=== PATIENT | male | born 1980 | race Caucasian/White ===

== ENCOUNTER 2017-12-19 01:17 | Emergency (ER) | payer BC, OTHER ==
[2017-12-19] MEDS ORDERED: Acetaminophen/HYDROcodone 325-5 MG Tab PO ONE (01:54)
[2017-12-19] MEDS ORDERED: Amoxicillin 500 MG Cap PO ONE (01:54)
--- NOTE | 2017-12-19 01:54 | EDM.PDOC ---
ED HPI GENERAL MEDICAL PROBLEM - General Chief Complaint: ENT Problem Stated Complaint: TOOTH PAIN Time Seen by Provider: 12/19/17 01:47 - History of Present Illness INITIAL COMMENTS - FREE TEXT/NARRATIVE: 37-year-old male presents emergency room with dental pain. His left lower wisdom tooth is acting up. This is been going on for last 3-4 days progressively getting worse he cannot sleep tonight. He does have a phone call into his dentist who will try and work him in as soon as possible. Patient denies any fevers chills no facial swelling. Patient has not had prior problems like this in the past. He's taken some [id number] Tylenol Motrin and tried rubbing a little whiskey over however has not drank any whiskey. Left Lower Tooth/Teeth Pain Score (Numeric/FACES): 9 - Related Data Allergies Allergy/AdvReac Type Severity Reaction Status Date / Time No Known Allergies Allergy Verified 12/19/17 01:23 Home Meds: Home Meds Acetaminophen [Tylenol Extra Strength] 1,000 mg PO ONCALL PRN 12/19/17 [History] Amoxicillin 500 mg PO Q8H #30 capsule 12/19/17 [Rx] Past Medical History - Past Health History Medical/Surgical History: Denies Medical/Surgical History Cardiovascular History: Reports: [place] Social & Family History - Tobacco Use Smoking Status *Q: Current Every Day Smoker Years of Tobacco use: 15 Packs/Tins Daily: 0.1 Used Tobacco, but Quit: Yes Month Tobacco Last Used: 07/2017 Tobacco Use Comment: pt quit smoking in July, Currently still chews - Alcohol Use Days Per Week of Alcohol Use: 0 - Recreational Drug Use Recreational Drug Use: No ED ROS ENT - Review of Systems Review Of Systems: See Below Constitutional: Reports: No Symptoms HEENT: Reports: Dental Pain. Denies: Ear Pain, Eye Pain, Rhinitis, Sinus Problem Respiratory: Reports: No Symptoms Cardiovascular: Reports: No Symptoms GI/Abdominal: Reports: No Symptoms ED EXAM, ENT - Physical Exam Exam: See Below Exam Limited By: No Limitations General Appearance: Alert, No Apparent Distress Ears: Normal External Exam, Normal Canal, Hearing Grossly Normal, Normal TMs Nose: Normal Inspection, Normal Mucousa Mouth/Throat: Normal Inspection, Normal Gums, Normal Lips, Normal Oropharynx, Other (This teeth do not look too bad however his left rear tooth has surrounding swelling behind it. No drainage noted the areas is exquisitely tender the rearmost molar is exquisitely tender) Neck: Normal Inspection, Supple, Non-Tender, Full Range of Motion. No: Lymphadenopathy (L), Lymphadenopathy (R) Respiratory/Chest: No Respiratory Distress, Lungs Clear, Normal Breath Sounds Cardiovascular: Regular Rate, Rhythm, No Edema, No Murmur Course - Vital Signs Last Recorded V/S: Last Vital Signs Temp 36.9 C 12/19/17 01:24 Pulse 80 12/19/17 01:24 Resp 18 12/19/17 01:24 BP 137/86 12/19/17 01:24 Pulse Ox 97 12/19/17 01:24 - Orders/Labs/Meds Meds: Medications Discontinued Medications Generic Name Dose Route Start Last Admin Trade Name Mathew PRN Reason Stop Dose Admin Hydrocodone Bitart/Acetaminophen 1 tab 12/19/17 01:54 12/19/17 02:02 [place] 325-5 Mg PO 12/19/17 01:55 1 tab ONETIME ONE Administration Amoxicillin 500 mg 12/19/17 01:54 12/19/17 02:02 Amoxil PO 12/19/17 01:55 500 mg ONETIME ONE Administration Departure - Departure Time of Disposition: 01:56 Disposition: Home, Self-Care 01 Clinical Impression: Pain due to dental caries - Discharge Information Prescriptions: Amoxicillin 500 mg PO Q8H #30 capsule Referrals: PCP,None [Primary Care Provider] - Forms: ED Department Discharge Additional Instructions: Return to emergency room with any questions problems worsening symptoms. Follow up with your dentist as soon as you can. He been started on 2 medications one is hydrocodone use this for more severe pain when ibuprofen is not working or for nighttime use. Take one or 2 every 6 hours as needed. Allow 12 hours after using this medication before driving or returning to work. The second medication is amoxicillin this is an antibiotic take 500 mg or one tablet every 8 hours for 10 days.
== END 2017-12-19 02:09 | disposition home or self-care (01) ==
LOC: JD.ED 01:17
DX: K02.9 Dental caries, unspecified (principal); F17.210 Nicotine dependence, cigarettes, uncomplicated
CPT/HCPCS: 99282; A9270

== ENCOUNTER 2018-05-07 12:35 | Emergency (ER) | payer BC ==
--- NOTE | 2018-05-07 13:40 | EDM.PDOC ---
<Julissa Banerjee - Last Filed: 05/07/18 13:49> ED HPI GENERAL MEDICAL PROBLEM - General Chief Complaint: Exposure to Heat or Cold Stated Complaint: SENT FROM [place] Time Seen by Provider: 05/07/18 13:40 - History of Present Illness INITIAL COMMENTS - FREE TEXT/NARRATIVE: Patient comes in today for complaint of myalgias, confusion, throat pain, and headache. 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 Yesterday morning the patient woke up in tears and doubled up due to abdominal cramping, patient also dry heaved several times and had a HARVEY. He left for work at 0530 and was brought home by his boss' at 1400. When patient's arrived at home at 1800 patient appeared confused and did not know where he was. Patient was also had chills, diaphoretic, weak, and complaining of a HARVEY. Patient's gave him coconut water, childress, and Tylenol. Tylenol did not help with his HARVEY. This morning patient complained of HARVEY, myalgias, and throat pain. Patient's also states the patient still does not seem to be acting like his normal self. Associated symptoms include reduced urine output. Patient denies nausea, vomiting, or abdominal pain. Onset Date: 05/05/18 Duration: Improving Quality: Reports: Other (cramping) Associated Symptoms: Reports: Confusion, Headaches, Nausea/Vomiting, Weakness. 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 Denies: Fever HEENT: Reports: Throat Pain Respiratory: Denies: Shortness of Breath Cardiovascular: Denies: Chest Pain, Edema GI/Abdominal: Reports: Decreased Appetite. Denies: Abdominal Pain, Diarrhea, Distension, Nausea, Vomiting : Denies: Dysuria, Frequency, Urgency, Urinary Retention Musculoskeletal: Reports: Muscle Pain Neurological: Reports: Confusion, Headache. Denies: Numbness, Tingling, Trouble Speaking, Change in Speech ED EXAM, GENERAL - Physical Exam Exam Limited By: No Limitations General Appearance: Alert, WD/WN, No Apparent Distress Eye Exam: Bilateral Eye: EOMI, PERRL Head: Atraumatic, Normocephalic Respiratory/Chest: No Respiratory Distress, Lungs Clear, Normal Breath Sounds Cardiovascular: Normal Peripheral Pulses, Regular Rate, Rhythm GI/Abdominal: Normal Bowel Sounds, Soft, Non-Tender, No Organomegaly, No Distention, No Abnormal Bruit, No Mass Neurological: Alert, Oriented, CN II-XII Intact, Normal Reflexes Skin Exam: Warm, Dry, Intact, Normal Color Course - Vital Signs Last Recorded V/S: Last Vital Signs Temp 36.6 C 05/07/18 16:01 Pulse 77 05/07/18 16:01 Resp 20 05/07/18 16:01 BP 95/65 05/07/18 16:01 Pulse Ox 100 05/07/18 16:01 - Orders/Labs/Meds Orders: Active Orders 24 hr Category Date Time Status Chest 1V Frontal [CR] Stat Exams 05/07/18 15:08 Taken URINALYSIS W/MICROSCOPIC [UA W/MICROSCOPIC] [URIN] Stat Lab 05/07/18 13:10 Ordered Labs: Laboratory Tests 05/07/18 05/07/18 05/07/18 Range/Units 13:10 13:10 13:10 WBC 13.32 H (4.23-9.07) K/mm3 RBC 4.51 L (4.63-6.08) M/mm3 Hgb 13.3 L (13.7-17.5) gm/L Hct 39.7 L (40.1-51.0) % MCV 88.0 (79.0-92.2) fl MCH 29.5 (25.7-32.2) pg MCHC 33.5 (32.2-35.5) g/dl RDW Std Deviation 41.9 (35.1-43.9) fL Plt Count 241 (163-337) K/mm3 MPV 10.8 (9.4-12.3) fl Neutrophils % (Manual) 73 H (40-60) % Band Neutrophils % 1 (0-10) % Lymphocytes % (Manual) 18 L (20-40) % Atypical Lymphs % 0 % Monocytes % (Manual) 6 (2-10) % Eosinophils % (Manual) 2 (0.8-7.0) % Basophils % (Manual) 0 L (0.2-1.2) Platelet Estimate Adequate Plt Morphology Comment Normal RBC Morph Comment Normal Sodium 139 (136-145) mEq/L Potassium 4.0 (3.5-5.1) mEq/L Chloride 104 (98-107) mEq/L Carbon Dioxide 28 (21-32) mEq/L Anion Gap 11.0 (5-15) BUN 9 (7-18) mg/dL Creatinine 1.0 (0.7-1.3) mg/dL Est Cr Clr Drug Dosing 99.75 mL/min Estimated GFR (MDRD) > 60 (>60) mL/min BUN/Creatinine Ratio 9.0 L (14-18) Glucose 96 (74-106) mg/dL Serum Osmolality 296 (280-300) mosm/kg Lactic Acid (0.4-2.0) mmol/L Calcium 8.6 (8.5-10.1) mg/dL Magnesium 2.2 (1.8-2.4) mg/dl Total Bilirubin 0.8 (0.2-1.0) mg/dL AST 42 H (15-37) U/L ALT 77 H (16-63) U/L Alkaline Phosphatase 58 (46-116) U/L Creatine Kinase 101 (39-308) U/L C-Reactive Protein (<1.0) mg/dL Total Protein 7.3 (6.4-8.2) g/dl Albumin 4.0 (3.4-5.0) g/dl Globulin 3.3 gm/dL Albumin/Globulin Ratio 1.2 (1-2) Urine Color Light yellow (Yellow) Urine Appearance Clear (Clear) Urine pH 6.5 (5.0-8.0) Ur Specific [place] 1.015 (1.005-1.030) Urine Protein Negative (Negative) Urine Glucose (UA) Trace H (Negative) Urine Ketones Negative (Negative) Urine Occult Blood Negative (Negative) Urine Nitrite Negative (Negative) Urine Bilirubin Negative (Negative) Urine Urobilinogen 0.2 (0.2-1.0) Ur Leukocyte Esterase Negative (Negative) Urine RBC Not seen (0-5) /hpf Urine WBC 0-5 (0-5) /hpf Ur Epithelial Cells 0-5 (0-5) /hpf Urine Bacteria Not seen (FEW) /hpf Urine Mucus Not seen (FEW) /hpf 05/07/18 05/07/18 Range/Units 13:10 14:00 WBC (4.23-9.07) K/mm3 RBC (4.63-6.08) M/mm3 Hgb (13.7-17.5) gm/L Hct (40.1-51.0) % MCV (79.0-92.2) fl MCH (25.7-32.2) pg MCHC (32.2-35.5) g/dl RDW Std Deviation (35.1-43.9) fL Plt Count (163-337) K/mm3 MPV (9.4-12.3) fl Neutrophils % (Manual) (40-60) % Band Neutrophils % (0-10) % Lymphocytes % (Manual) (20-40) % Atypical Lymphs % % Monocytes % (Manual) (2-10) % Eosinophils % (Manual) (0.8-7.0) % Basophils % (Manual) (0.2-1.2) Platelet Estimate Plt Morphology Comment RBC Morph Comment Sodium (136-145) mEq/L Potassium (3.5-5.1) mEq/L Chloride (98-107) mEq/L Carbon Dioxide (21-32) mEq/L Anion Gap (5-15) BUN (7-18) mg/dL Creatinine (0.7-1.3) mg/dL Est Cr Clr Drug Dosing mL/min Estimated GFR (MDRD) (>60) mL/min BUN/Creatinine Ratio (14-18) Glucose (74-106) mg/dL Serum Osmolality (280-300) mosm/kg Lactic Acid 0.4 (0.4-2.0) mmol/L Calcium (8.5-10.1) mg/dL Magnesium (1.8-2.4) mg/dl Total Bilirubin (0.2-1.0) mg/dL AST (15-37) U/L ALT (16-63) U/L Alkaline Phosphatase (46-116) U/L Creatine Kinase (39-308) U/L C-Reactive Protein 4.0 H* (<1.0) mg/dL Total Protein (6.4-8.2) g/dl Albumin (3.4-5.0) g/dl Globulin gm/dL Albumin/Globulin Ratio (1-2) Urine Color (Yellow) Urine Appearance (Clear) Urine pH (5.0-8.0) Ur Specific [place] (1.005-1.030) Urine Protein (Negative) Urine Glucose (UA) (Negative) Urine Ketones (Negative) Urine Occult Blood (Negative) Urine Nitrite (Negative) Urine Bilirubin (Negative) Urine Urobilinogen (0.2-1.0) Ur Leukocyte Esterase (Negative) Urine RBC (0-5) /hpf Urine WBC (0-5) /hpf Ur Epithelial Cells (0-5) /hpf Urine Bacteria (FEW) /hpf Urine Mucus (FEW) /hpf Meds: Medications Discontinued Medications Generic Name Dose Route Start Last Admin Trade Name Parishq PRN Reason Stop Dose Admin Dextrose/Lactated Ringer's 1,000 mls @ 999 mls/hr 05/07/18 13:45 05/07/18 13: 55 Dextrose 5%-Lactated Ringers IV 999 mls/hr ASDIRECTED FREDY Administration Ketorolac Tromethamine 30 mg 05/07/18 14:00 05/07/18 13:55 Toradol IVPUSH 30 mg ONETIME FREDY Administration Metoclopramide HCl 10 mg 05/07/18 13:46 05/07/18 13:55 Reglan IVPUSH 05/07/18 13:47 10 mg ONETIME ONE Administration Departure - Departure Disposition: Home, Self-Care 01 Clinical Impression: Cramps, muscle, general Heat exhaustion Qualifiers: Encounter type: initial encounter Qualified Code(s): T67.5XXA - Heat exhaustion , unspecified, initial encounter - Discharge Information Instructions: Muscle Cramps and Spasms, [id number], Heat Exhaustion Information Referrals: Leonard Red DO [Primary Care Provider] - Forms: ED Department Discharge, ED Return to Work/School Form Additional Instructions: Evaluation the emergency room today in regards to illness that has gone on for the last 2 and half days. Appears to be primarily brought on by heat exhaustion due to the extreme ambient temperature working long hours outside and very hot and humid weather. This has caused volume depletion and development of confusion transiently associated with chills and severe muscle cramps. He had to come home from work yesterday due to confusion and muscle cramps. Today he you had lab work done which showed that most things have normalized over the last 24 hours. White count remained mildly elevated due to stress response from adrenaline. He received a liter of D5 Ringer's lactate to rehydrate you as well as medications for cramping. No other signs of infection are identified. Particular a chest x-ray was within normal limits. Treatment therefore is to continue rehydrating fluids with Gatorade Powerade ideally any other juices are sufficient as well. Is just important to take some other juices fluid or Gatorade in combination with water. Water alone will dilute your serum sodium level and help precipitate severe muscle cramping. Follow-up if any further problems occur. - My Orders Last 24 Hours: My Active Orders 05/07/18 13:10 URINALYSIS W/MICROSCOPIC [UA W/MICROSCOPIC] [URIN] Stat 05/07/18 15:08 Chest 1V Frontal [CR] Stat - Assessment/Plan Last 24 Hours: My Active Orders 05/07/18 13:10 URINALYSIS W/MICROSCOPIC [UA W/MICROSCOPIC] [URIN] Stat 05/07/18 15:08 Chest 1V Frontal [CR] Stat <Kevin Richey - Last Filed: 05/07/18 19:10> ED HPI GENERAL MEDICAL PROBLEM - General Source of Information: Reports: Patient History Limitations: Reports: No Limitations Headache Pain Score (Numeric/FACES): 5 Past Medical History - Past Health History Medical/Surgical History: Denies Medical/Surgical History Cardiovascular History: Reports: [place], Other (See Below) Other Cardiovascular History: calcified artery in heart Social & Family History - Tobacco Use Smoking Status *Q: Former Smoker Used Tobacco, but Quit: Yes Month/Year Tobacco Last Used: 8 months - Caffeine Use Caffeine Use: Reports: Coffee - Recreational Drug Use Recreational Drug Use: No ED ROS GENERAL - Review of Systems Review Of Systems: See Below ED EXAM, GENERAL - Physical Exam Exam: See Below Course - Orders/Labs/Meds Orders: Active Orders 24 hr Category Date Time Status Chest 1V Frontal [CR] Stat Exams 05/07/18 15:08 Taken URINALYSIS W/MICROSCOPIC [UA W/MICROSCOPIC] [URIN] Stat Lab 05/07/18 13:10 Ordered Labs: Laboratory Tests 05/07/18 05/07/18 05/07/18 Range/Units 13:10 13:10 13:10 WBC 13.32 H (4.23-9.07) K/mm3 RBC 4.51 L (4.63-6.08) M/mm3 Hgb 13.3 L (13.7-17.5) gm/L Hct 39.7 L (40.1-51.0) % MCV 88.0 (79.0-92.2) fl MCH 29.5 (25.7-32.2) pg MCHC 33.5 (32.2-35.5) g/dl RDW Std Deviation 41.9 (35.1-43.9) fL Plt Count 241 (163-337) K/mm3 MPV 10.8 (9.4-12.3) fl Neutrophils % (Manual) 73 H (40-60) % Band Neutrophils % 1 (0-10) % Lymphocytes % (Manual) 18 L (20-40) % Atypical Lymphs % 0 % Monocytes % (Manual) 6 (2-10) % Eosinophils % (Manual) 2 (0.8-7.0) % Basophils % (Manual) 0 L (0.2-1.2) Platelet Estimate Adequate Plt Morphology Comment Normal RBC Morph Comment Normal Sodium 139 (136-145) mEq/L Potassium 4.0 (3.5-5.1) mEq/L Chloride 104 (98-107) mEq/L Carbon Dioxide 28 (21-32) mEq/L Anion Gap 11.0 (5-15) BUN 9 (7-18) mg/dL Creatinine 1.0 (0.7-1.3) mg/dL Est Cr Clr Drug Dosing 99.75 mL/min Estimated GFR (MDRD) > 60 (>60) mL/min BUN/Creatinine Ratio 9.0 L (14-18) Glucose 96 (74-106) mg/dL Serum Osmolality 296 (280-300) mosm/kg Lactic Acid (0.4-2.0) mmol/L Calcium 8.6 (8.5-10.1) mg/dL Magnesium 2.2 (1.8-2.4) mg/dl Total Bilirubin 0.8 (0.2-1.0) mg/dL AST 42 H (15-37) U/L ALT 77 H (16-63) U/L Alkaline Phosphatase 58 (46-116) U/L Creatine Kinase 101 (39-308) U/L C-Reactive Protein (<1.0) mg/dL Total Protein 7.3 (6.4-8.2) g/dl Albumin 4.0 (3.4-5.0) g/dl Globulin 3.3 gm/dL Albumin/Globulin Ratio 1.2 (1-2) Urine Color Light yellow (Yellow) Urine Appearance Clear (Clear) Urine pH 6.5 (5.0-8.0) Ur Specific [place] 1.015 (1.005-1.030) Urine Protein Negative (Negative) Urine Glucose (UA) Trace H (Negative) Urine Ketones Negative (Negative) Urine Occult Blood Negative (Negative) Urine Nitrite Negative (Negative) Urine Bilirubin Negative (Negative) Urine Urobilinogen 0.2 (0.2-1.0) Ur Leukocyte Esterase Negative (Negative) Urine RBC Not seen (0-5) /hpf Urine WBC 0-5 (0-5) /hpf Ur Epithelial Cells 0-5 (0-5) /hpf Urine Bacteria Not seen (FEW) /hpf Urine Mucus Not seen (FEW) /hpf 05/07/18 05/07/18 Range/Units 13:10 14:00 WBC (4.23-9.07) K/mm3 RBC (4.63-6.08) M/mm3 Hgb (13.7-17.5) gm/L Hct (40.1-51.0) % MCV (79.0-92.2) fl MCH (25.7-32.2) pg MCHC (32.2-35.5) g/dl RDW Std Deviation (35.1-43.9) fL Plt Count (163-337) K/mm3 MPV (9.4-12.3) fl Neutrophils % (Manual) (40-60) % Band Neutrophils % (0-10) % Lymphocytes % (Manual) (20-40) % Atypical Lymphs % % Monocytes % (Manual) (2-10) % Eosinophils % (Manual) (0.8-7.0) % Basophils % (Manual) (0.2-1.2) Platelet Estimate Plt Morphology Comment RBC Morph Comment Sodium (136-145) mEq/L Potassium (3.5-5.1) mEq/L Chloride (98-107) mEq/L Carbon Dioxide (21-32) mEq/L Anion Gap (5-15) BUN (7-18) mg/dL Creatinine (0.7-1.3) mg/dL Est Cr Clr Drug Dosing mL/min Estimated GFR (MDRD) (>60) mL/min BUN/Creatinine Ratio (14-18) Glucose (74-106) mg/dL Serum Osmolality (280-300) mosm/kg Lactic Acid 0.4 (0.4-2.0) mmol/L Calcium (8.5-10.1) mg/dL Magnesium (1.8-2.4) mg/dl Total Bilirubin (0.2-1.0) mg/dL AST (15-37) U/L ALT (16-63) U/L Alkaline Phosphatase (46-116) U/L Creatine Kinase (39-308) U/L C-Reactive Protein 4.0 H* (<1.0) mg/dL Total Protein (6.4-8.2) g/dl Albumin (3.4-5.0) g/dl Globulin gm/dL Albumin/Globulin Ratio (1-2) Urine Color (Yellow) Urine Appearance (Clear) Urine pH (5.0-8.0) Ur Specific [place] (1.005-1.030) Urine Protein (Negative) Urine Glucose (UA) (Negative) Urine Ketones (Negative) Urine Occult Blood (Negative) Urine Nitrite (Negative) Urine Bilirubin (Negative) Urine Urobilinogen (0.2-1.0) Ur Leukocyte Esterase (Negative) Urine RBC (0-5) /hpf Urine WBC (0-5) /hpf Ur Epithelial Cells (0-5) /hpf Urine Bacteria (FEW) /hpf Urine Mucus (FEW) /hpf Meds: Medications Discontinued Medications Generic Name Dose Route Start Last Admin Trade Name Freq PRN Reason Stop Dose Admin Dextrose/Lactated Ringer's 1,000 mls @ 999 mls/hr 05/07/18 13:45 05/07/18 13: 55 Dextrose 5%-Lactated Ringers IV 999 mls/hr ASDIRECTED FREDY Administration Ketorolac Tromethamine 30 mg 05/07/18 14:00 05/07/18 13:55 Toradol IVPUSH 30 mg ONETIME FREDY Administration Metoclopramide HCl 10 mg 05/07/18 13:46 05/07/18 13:55 Reglan IVPUSH 05/07/18 13:47 10 mg ONETIME ONE Administration - Re-Assessments/Exams Free Text/Narrative Re-Assessment/Exam: 05/07/18 15:06 Labs reveal a white count of 13.32 with a left shift of 73% neutrophils 1% band cells. Hemoglobin is 13.3 with them hematocrit of 39.7. Glucose 241,000. Sodium is 139 with potassium of 4.0. Toward 104 the bicarbonate of 28. And a gap is good at 11.0. BUN is 9 with a creatinine of 1.0. GFR is greater than 60. Glucose is 96. Serum osmolality is 296. Lactic acid is normal at 0.4. Calcium was 8.6. Magnesium is 2.2. AST is mildly elevated at 42. ALT mildly elevated at 77. Alkaline phosphatase normal at 58. Bilirubin 0.8. Creatine kinase is normal at 101. 05/07/18 15:28 chest x-ray done portably but appears to be magnified by portable technique. This is created an appearance of diffuse vascular congestion and prominence of the hilum laterally. Cardiac silhouette is normal. No definitive evidence of an infective process 05/07/18 16: 00: Patient patient reports he feels markedly improved. Not sure about the history of fever and chills and the reason for transient confusion. He may have corrected his volume depletion since and symptoms started. He does have a mildly elevated white count for which I cannot fully account for. He remains afebrile. I can find no other source for an infection. This appears to be a stress response. advised at length about keeping up with his fluid status particularly in a hot workplace. Departure - Departure Time of Disposition: 15:47 Condition: Fair - Discharge Information *PRESCRIPTION DRUG MONITORING PROGRAM REVIEWED*: Not Applicable *COPY OF PRESCRIPTION DRUG MONITORING REPORT IN PATIENT MANNY: Not Applicable - My Orders Last 24 Hours: My Active Orders 05/07/18 13:10 URINALYSIS W/MICROSCOPIC [UA W/MICROSCOPIC] [URIN] Stat 05/07/18 15:08 Chest 1V Frontal [CR] Stat - Assessment/Plan Last 24 Hours: My Active Orders 05/07/18 13:10 URINALYSIS W/MICROSCOPIC [UA W/MICROSCOPIC] [URIN] Stat 05/07/18 15:08 Chest 1V Frontal [CR] Stat
[2018-05-07] MEDS ORDERED: Dextrose 5%-Lactated Ringers 1,000 ML IV SCH (13:45)
[2018-05-07] MEDS ORDERED: Metoclopramide 10 MG/2 ML SDV IVPUSH ONE (13:46)
[2018-05-07] MEDS ORDERED: Ketorolac 30 MG/ML SDV IVPUSH SCH (14:00)
--- NOTE | 2018-05-08 13:24 | CR ---
Chest: Portable view of the chest was obtained. Comparison: Prior chest x-ray of 09/02/14. Heart size and mediastinum are within normal limits. Lungs are clear. Bony structures are grossly intact. Impression: 1. Nothing acute is seen on portable chest x-ray. Diagnostic code #1
== END 2018-05-07 16:05 | disposition home or self-care (01) ==
LOC: JD.ED 12:35
DX: T67.5XXA Heat exhaustion, unspecified, initial encounter (principal); Z87.891 Personal history of nicotine dependence; Z79.82 Long term (current) use of aspirin; Z79.899 Other long term (current) drug therapy
CPT/HCPCS: 36415; 71045; 80053; 81001; 82550; 83605; 83735; 83930; 85007; 85027; 86140; 96361; 96374; 96375; 99284; J1885; J2765; J7042

== ENCOUNTER 2023-02-04 10:35 | Emergency (ER) | payer BC ==
[2023-02-04] MEDS ORDERED: Sodium Chloride 0.9% 1,000 ML IV ONE (11:49)
[2023-02-04] MEDS ORDERED: Loperamide 2 MG Cap PO STA (11:49)
[2023-02-04] MEDS ORDERED: Ondansetron 4 MG/2 ML SDV IVPUSH ONE (11:49)
== END 2023-02-04 15:00 | disposition home or self-care (01) ==
LOC: JD.ED 10:35
DX: A08.4 Viral intestinal infection, unspecified (principal); I25.10 Atherosclerotic heart disease of native coronary artery without angina pectoris; J45.909 Unspecified asthma, uncomplicated; K21.9 Gastro-esophageal reflux disease without esophagitis; Z79.82 Long term (current) use of aspirin; Z79.899 Other long term (current) drug therapy; Z87.891 Personal history of nicotine dependence
CPT/HCPCS: 36415; 80053; 83735; 85025; 96361; 96374; 99284; A9270; J2405; J7030; 99283

== ENCOUNTER 2024-07-12 14:41 | Emergency (ER) | payer BC ==
[2024-07-12] MEDS ORDERED: Sodium Chloride 0.9% 10 ML Syringe FLUSH PRN (16:01)
[2024-07-12 16:30] LABS: BASOPHILS PERCENT AUTO 0.5 % (0.0-1.0); EOSINOPHILS ABSOLUTE AUTO 0.3 K/mm3 (0.0-0.4); EOSINOPHILS PERCENT AUTO 4.4 % (0.0-6.0); HEMATOCRIT 39.5 % (42.0-52.0); HEMOGLOBIN 13.4 gm/dl (14.0-18.0); IMMATURE GRAN ABSOLUTE AUTO 0.01 K/mm3 (0.00-0.05); IMMATURE GRAN PERCENT AUTO 0.2 % (0.0-0.4); LYMPHOCYTES ABSOLUTE AUTO 1.8 K/mm3 (1.0-4.8); LYMPHOCYTES PERCENT AUTO 28.1 % (24.0-44.0); MEAN CORPUSCULAR HEMOGLOBIN 30.5 pg (28.0-32.0); MEAN CORPUSCULAR HGB CONC 33.9 g/dl (32.0-36.0); MONOCYTES ABSOLUTE AUTO 0.8 K/mm3 (0.0-0.8); MONOCYTES PERCENT AUTO 11.5 % (0.0-8.0); NEUTROPHILS ABSOLUTE AUTO 3.6 K/mm3 (1.8-7.7); NEUTROPHILS PERCENT AUTO 55.3 % (41.0-71.0); PLATELET COUNT,PLT 253 K/mm3 (150-400); RED BLOOD CELL COUNT 4.39 M/mm3 (4.52-5.90); WHITE BLOOD CELL COUNT,WBC 6.55 K/mm3 (3.9-11.3)
[2024-07-12 16:42] LABS: A/G RATIO 1.3 (1-2); ANION GAP 12.4 (5-15); BILIRUBIN TOTAL 0.6 mg/dL (0.2-1.0); C-REACTIVE PROTEIN 0.16 mg/dL (<0.30); CALCIUM 8.7 mg/dL (8.5-10.1); EST CRCL DRUG DOSING (CG) 94.05 mL/min; POTASSIUM,K 3.4 mEq/L (3.5-5.1)
[2024-07-12 16:47] LABS: LACTIC ACID 0.8 mmol/L (0.4-2.0)
[2024-07-12] MEDS: Iopamidol 755 Mg/ML 100 ML Bottle IVPUSH ONE (16:57)
[2024-07-12] MEDS: Sodium Chloride 0.9% 10 ML Syringe FLUSH ONE (16:58)
[2024-07-12 17:23] LABS: APPEARANCE,URINE CLEAR (Clear); BILIRUBIN,URINE NEGATIVE (Negative); COLOR,URINE YELLOW (Yellow); GLUCOSE,URINE NEGATIVE (Negative); KETONES,URINE NEGATIVE (Negative); LEUKOCYTE ESTERASE,URINE NEGATIVE (Negative); NITRITE,URINE NEGATIVE (Negative); OCCULT BLOOD,URINE NEGATIVE (Negative); PROTEIN,URINE NEGATIVE (Negative); UROBILINOGEN,URINE 0.2 (0.2-1.0)
== END 2024-07-12 18:45 | disposition home or self-care (01) ==
LOC: JD.ED 14:41
DX: K42.9 Umbilical hernia without obstruction or gangrene (principal); I25.2 Old myocardial infarction; E78.00 Pure hypercholesterolemia, unspecified; I25.10 Atherosclerotic heart disease of native coronary artery without angina pectoris; Z86.16 Personal history of COVID-19; F17.210 Nicotine dependence, cigarettes, uncomplicated; Z79.82 Long term (current) use of aspirin; Z79.51 Long term (current) use of inhaled steroids; Z79.899 Other long term (current) drug therapy
CPT/HCPCS: 36415; 74177; 80053; 81003; 83605; 83690; 85025; 86140; 99284; J3490; Q9967